=== PATIENT | male | born 1995 | race African-American/Black ===

== ENCOUNTER 2025-01-29 20:41 | Emergency (ER) | payer SELFPAY | END 2025-01-29 23:51 | LOC: ERS 20:41 | DX: Z53.21 Procedure and treatment not carried out due to patient leaving prior to being seen by health care provider (principal) | CPT/HCPCS: 72125 ==

== ENCOUNTER 2025-03-16 04:02 | Emergency (ER) | payer BC ==
[2025-03-16] MEDS ORDERED: Amoxicillin/Potassium Clav 875 MG TAB ONE (04:48)
[2025-03-16] MEDS ORDERED: Ketorolac Tromethamine 30 MG (1 mL) VIAL ONE ×2 (04:48→04:49)
[2025-03-16] MEDS ORDERED: Benzocaine 20% Spray 60 ML CAN ONE (07:27)
== END 2025-03-16 06:07 | disposition home or self-care (01) ==
LOC: ERS 04:02
DX: J03.90 Acute tonsillitis, unspecified (principal); L03.211 Cellulitis of face
CPT/HCPCS: 70486; 96372; J1885